=== PATIENT | male | born 1995 | race African-American/Black ===

== ENCOUNTER 2018-01-21 23:17 | Emergency (ER) | payer MEDICAID ==
[2018-01-21] MEDS ORDERED: ONDANSETRON 4 MG TAB.RAPDIS PO ONE (23:43)
[2018-01-21] MEDS ORDERED: FAMOTIDINE 20 MG TABLET PO ONE (23:43)
--- NOTE | 2018-01-21 23:45 | ER Document Report ---
HPI - HPI Patient complains to provider of: nausea, vomiting, diarrhea Pain Level: 2 Context: Patient is a 22-year-old male comes emergency department for chief complaint of nausea, vomiting, diarrhea. He has vomited 4 times a day, he had a couple of loose bowel movements, nonbloody. He denies fever or chills. He reports generalized abdominal discomfort, denies current pain in the abdomen. His partner was sick yesterday with same symptoms. He denies any surgeries, daily medications, alcohol. Past Medical History - General Information source: Patient - Social History Smoking Status: Never Smoker Chew tobacco use (# tins/day): No Drug Abuse: None Lives with: Spouse/Significant other Family History: Reviewed & Not Pertinent Patient has suicidal ideation: No Patient has homicidal ideation: No - Medical History Medical History: Negative Renal/ Medical History: Denies: Hx Peritoneal Dialysis Surgical Hx: Negative - Immunizations Immunizations up to date: Yes Hx Diphtheria, Pertussis, Tetanus Vaccination: Yes Vertical Provider Document - CONSTITUTIONAL General Appearance: WD/WN, No Apparent Distress - INFECTION CONTROL TRAVEL OUTSIDE OF THE [place] IN LAST 30 DAYS: No - HEENT HEENT: Atraumatic, Normocephalic - NECK Neck: Normal Inspection - RESPIRATORY Respiratory: Breath Sounds Normal, No Respiratory Distress O2 Sat by Pulse Oximetry: 98 - CARDIOVASCULAR Cardiovascular: Regular Rate, Regular Rhythm - GI/ABDOMEN Gastrointestinal: Abdomen Soft, Abdomen Non-Tender - BACK Back: Normal Inspection. negative: CVA Tenderness-Right, CVA Tenderness-Left - NEURO Level of Consciousness: Awake, Alert, Appropriate - DERM Integumentary: Warm, Dry, No Rash Course - Re-evaluation Re-evalutation: Patient alert, well-appearing, soft abdomen, clear lungs, unremarkable vital signs with no tachycardia. After medications patient states he feels great, he was drinking, had no difficulty, no additional vomiting, no rebound symptoms. Glucose is slightly elevated at 204. I discussed with patient. We discussed laboratory workup to evaluate. Patient states she is ready to go home. Patient has sick contacts, suspect he does have a virus as the cause, low suspicion DKA based on this, however patient does agree to have very close follow-up with [facility] to have a fasting glucose performed to further evaluate his elevated blood glucose level today. Discussed return precautions in detail, patient states satisfaction and agreement. - Vital Signs Vital signs: Temp Pulse Resp BP Pulse Ox 98.6 F 96 16 136/62 H 98 01/21/18 23:22 01/21/18 23:22 01/21/18 23:22 01/21/18 23:22 01/21/18 23:22 Discharge - Discharge Clinical Impression: Vomiting and diarrhea Disposition: HOME, SELF-CARE Additional Instructions: Your examination and symptoms are consistent with a viral syndrome. This should resolve with time. Take prescribed nausea medication, start with clear fluids, progress to bland food, progress to normal diet. Your blood sugar is moderately elevated today, this needs to be rechecked by primary care to evaluate you for diabetes and additional management. Please follow-up with the referral placed, call and set up your follow-up. Return if you worsen including uncontrolled vomiting, fever, severe abdominal pain, or any other concerning or worsening symptoms. Prescriptions: Promethazine HCl [Phenergan 25 mg Tablet] 1 - 2 tab PO Q6H PRN #20 tablet PRN Reason: Forms: Return to Work Referrals: FREDERICK DRAKE MD [ACTIVE STAFF] - Follow up as needed DINA RIVAS MD [ACTIVE STAFF] - Follow up as needed
[2018-01-22 01:36] VITALS: BP 129/77
== END 2018-01-22 01:17 | disposition home or self-care (01) ==
LOC: ER 23:17
DX: R11.2 Nausea with vomiting, unspecified (principal); R19.7 Diarrhea, unspecified; R10.84 Generalized abdominal pain; R73.9 Hyperglycemia, unspecified
CPT/HCPCS: 99283; 82962; J3490; S0119

== ENCOUNTER 2018-03-04 21:21 | Emergency (ER) | payer MEDICAID ==
--- NOTE | 2018-03-04 22:36 | ER Document Report ---
ED General - General Chief Complaint: Chest Pain Stated Complaint: CHEST PAIN Time Seen by Provider: 03/04/18 22:34 Notes: Patient is a 22-year-old male who presents with complaint of left arm pain and chest pain. He says the left arm pain was mainly around his left elbow. It then I would radiate up into his shoulder and a little bit into his chest. Says it was worse earlier today. Started around 2 PM. He said is now almost resolved. He says the pain was gone felt as if pain was a bit worse with movement. No difficulty breathing. No history of any heart disease. No family history of heart disease in young age. He takes no medications and is otherwise healthy. 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 TRAVEL OUTSIDE OF THE [place] IN LAST 30 DAYS: No - Related Data Allergies/Adverse Reactions: No Known Allergies Allergy (Unverified 03/04/18 21:24) Past Medical History - Social History Smoking Status: Never Smoker Frequency of alcohol use: Rare Drug Abuse: None Family History: Reviewed & Not Pertinent Renal/ Medical History: Denies: Hx Peritoneal Dialysis - Immunizations Immunizations up to date: Yes Hx Diphtheria, Pertussis, Tetanus Vaccination: Yes Review of Systems - Review of Systems Notes: My Normal Review Basic REVIEW OF SYSTEMS: CONSTITUTIONAL : Denies fever, chills, or sweats. Denies recent illness. EENT: Denies eye, ear, throat, or mouth pain or symptoms. Denies nasal or sinus congestion. CARDIOVASCULAR: Had some chest pain. RESPIRATORY: Denies cough, cold, or chest congestion. Denies shortness of breath, difficulty breathing, or wheezing. GASTROINTESTINAL: Denies abdominal pain. Denies nausea, vomiting, or diarrhea. MUSCULOSKELETAL: Pain in left elbow. SKIN: Denies rash or skin lesions. NEUROLOGICAL: Denies altered mental status or loss of consciousness. Denies headache. Denies weakness or paralysis or loss of use of either side. Denies problems with gait or speech. Denies sensory or motor loss. ALL OTHER SYSTEMS REVIEWED AND NEGATIVE. Physical Exam - Vital signs Vitals: Temp Pulse Resp BP Pulse Ox 97.9 F 68 18 141/83 H 100 03/04/18 22:21 03/04/18 22:21 03/04/18 22:21 03/04/18 22:21 03/04/18 22:21 - Notes Notes: General Appearance: Well nourished, alert, cooperative, no acute distress, no obvious discomfort. Well appearing. Vitals: reviewed, See vital signs table. Head: no swelling or tenderness to the head Eyes: PERRL, EOMI, Conjuctiva clear Neck: Supple, no neck tenderness, Chest wall: No tenderness palpation over anterior chest wall. Lungs: No wheezing, No rales, No rhonci, No accessory muscle use, good air exchange bilaterally. Heart: Normal rate, Regular rythm, No murmur, no rub Abdomen: Normal BS, soft, No rigidity, No abdominal tenderness, No guarding, no rebound, no abdominal masses, no organomegaly Extremities: strength 5/5 in all extremities, good pulses in all extremities, mild pain to palpation over left elbow lateral epicondyle. No significant pain with motion at this time. Remainder of left upper extremity is nontender. Skin: warm, dry, appropriate color, no rash Neuro: speech clear, oriented x 3, normal affect, responds appropriately to questions. Course - Re-evaluation Re-evalutation: 03/05/18 04:27 Patient looks very well on exam. He has pain is mostly the elbow is worse with motion he had some pain rating to his chest. Currently is pain-free and he looks very well. His lung mg are clear. His EKG is normal appearing. His heart is normal size on x-ray. He has no his factors for coronary disease or cardiomyopathy. He has no family history of coronary disease cardio myopathy at a young age. Feel he is safe to be discharged home. I encouraged her return to ER immediately if he has difficulty breathing, worsening chest pain, or feels unwell. Patient agrees with plan and will be discharged home. Dictation of this chart was performed using voice recognition software; therefore, there may be some unintended grammatical errors. - Vital Signs Vital signs: Temp Pulse Resp BP Pulse Ox 97.7 F 71 16 114/73 99 03/05/18 00:30 03/05/18 00:30 03/05/18 00:30 03/05/18 00:30 03/05/18 00:30 - EKG Interpretation by Me Additional EKG results interpreted by me: 03/04/18 22:35 EKG is reviewed and interpreted by me. EKG shows sinus rhythm with a rate of [address] segment elevation in multiple leads without significant ST segment depression which is consistent with early repolarization abnormality. CO interval, QRS duration, QTc intervals are within normal range. No old EKG available for comparison. Discharge - Discharge Clinical Impression: Arm pain Qualifiers: Laterality: left Qualified Code(s): M79.602 - Pain in left arm Chest pain Qualifiers: Chest pain type: unspecified Qualified Code(s): R07.9 - Chest pain, unspecified Condition: Good Disposition: HOME, SELF-CARE Additional Instructions: Please take Motrin and Tylenol for recurrent pains. Please return to the ER if you have worsening recurrent chest pain, any difficulty breathing, fevers, or if you feel unwell. Please follow up with a doctor in 5-7 days for close reevaluation. Forms: Return to Work
[2018-03-05 00:30] VITALS: BP 114/73
--- NOTE | 2018-03-05 04:30 | RADIOLOGY REPORT (SQ) ---
EXAM DESCRIPTION: CHEST SINGLE VIEW CLINICAL HISTORY: 22 years Male, chest pain COMPARISON: None. NUMBER OF VIEWS/TECHNIQUE: 1/AP FINDINGS: Adequate lung volume, clear parenchyma, normal cardiac silhouette, and intact bony thorax. IMPRESSION: No acute cardiopulmonary findings.
--- NOTE | 2018-03-05 07:50 | EKG REPORT ---
SEVERITY:- NORMAL ECG - SINUS RHYTHM ST ELEV, PROBABLE NORMAL EARLY REPOL PATTERN : Confirmed by: Geovani Lam MD 05-Mar-2018 07:50:00
== END 2018-03-05 00:30 | disposition home or self-care (01) ==
LOC: ER 21:21
DX: M79.602 Pain in left arm (principal); M25.522 Pain in left elbow; R07.9 Chest pain, unspecified
CPT/HCPCS: 36415; 71045; 84484; 93005; 93010; 99285

== ENCOUNTER 2018-03-09 23:04 | Inpatient (IN) | payer MEDICAID ==
--- NOTE | 2018-03-10 00:05 | ER Document Report ---
ED General - General Chief Complaint: Palpitations Stated Complaint: HEART PALPITATIONS Time Seen by Provider: 03/10/18 00:04 Notes: Patient is a 22-year-old male presents with complaint of feeling as if his heart is beating funny. He says when his heart gets fast he feels dizzy. He does not pass out. Has not had a syncopal episode. I saw him 5 days ago when he was having little bit of pain in his upper chest into his left arm. He says his pain resolved that day and has not had any chest pain since then. No difficulty breathing. No history of DVT or PE. No leg pain or leg swelling. No recent surgeries long road trips. He denies any steroid use. He denies any drug use. He denies being a smoker. He denies any family history of atrial fibrillation that he is aware of. He has no other complaints at this time. TRAVEL OUTSIDE OF THE [place] IN LAST 30 DAYS: No - Related Data Allergies/Adverse Reactions: No Known Allergies Allergy (Unverified 03/04/18 21:24) Past Medical History - Social History Smoking Status: Never Smoker Frequency of alcohol use: None Drug Abuse: None Family History: Reviewed & Not Pertinent Renal/ Medical History: Denies: Hx Peritoneal Dialysis - Immunizations Immunizations up to date: Yes Hx Diphtheria, Pertussis, Tetanus Vaccination: Yes Review of Systems - Review of Systems Notes: My Normal Review Basic REVIEW OF SYSTEMS: CONSTITUTIONAL : Denies fever, chills, or sweats. Denies recent illness. EENT: Denies eye, ear, throat, or mouth pain or symptoms. Denies nasal or sinus congestion. CARDIOVASCULAR: Repetitions irregular heartbeat. RESPIRATORY: Denies cough, cold, or chest congestion. Denies shortness of breath, difficulty breathing, or wheezing. GASTROINTESTINAL: Denies abdominal pain. Denies nausea, vomiting, or diarrhea. MUSCULOSKELETAL: Denies neck or back pain or joint pain or swelling. SKIN: Denies rash or skin lesions. NEUROLOGICAL: Denies altered mental status or loss of consciousness. Denies headache. Denies weakness or paralysis or loss of use of either side. Denies problems with gait or speech. Denies sensory or motor loss. ALL OTHER SYSTEMS REVIEWED AND NEGATIVE. Physical Exam - Vital signs Vitals: Temp Pulse Resp BP Pulse Ox 98.5 F 57 L 18 136/81 H 100 03/09/18 23:32 03/09/18 23:32 03/09/18 23:32 03/09/18 23:32 03/09/18 23:32 - Notes Notes: General Appearance: Well nourished, alert, cooperative, no acute distress, no obvious discomfort. Vitals: reviewed, See vital signs table. Head: no swelling or tenderness to the head Eyes: PERRL, EOMI, Conjuctiva clear Mouth: No decreasd moisture Throat: No tonsillar inflammation, No airway obstruction, No lymphadenopathy Neck: Supple, no neck tenderness, No thyromegaly Lungs: No wheezing, No rales, No rhonci, No accessory muscle use, good air exchange bilaterally. Heart: Normal rate, Regular rythm, No murmur, no rub, no murmur with valsalva Abdomen: Normal BS, soft, No rigidity, No abdominal tenderness, No guarding, no rebound, no abdominal masses, no organomegaly Extremities: strength 5/5 in all extremities, good pulses in all extremities, no swelling or tenderness in the extremities, no edema. Skin: warm, dry, appropriate color, no rash Neuro: speech clear, oriented x 3, normal affect, responds appropriately to questions. Course - Re-evaluation Re-evalutation: 03/10/18 01:46 Patient's heart rate is now well controlled on the Cardizem drip. He looks and feels improved. His cardiac enzymes are negative. TSH still pending. D-dimer is negative. I am waiting to hear back from the hospitalist to discuss the case with them for consideration for admission. 03/10/18 02:[address] Lopez who requests that I call Dr. Justin, bolter helper, and discussed the case with him. The small equipment operator called Dr. Justin and left a message on his answering machine. If we do not hear back to 30 minutes we will try to call him again. - Vital Signs Vital signs: Temp Pulse Resp BP Pulse Ox 98.5 F 57 L 18 96/70 L 100 03/09/18 23:32 03/09/18 23:32 03/10/18 02:01 03/10/18 02:01 03/10/18 02:01 - Laboratory Result Diagrams: 03/10/18 00:20 03/10/18 00:40 Laboratory results interpreted by me: 03/10/18 03/10/18 03/10/18 00:40 00:40 00:40 Creatine Kinase 2291 H CK-MB (CK-2) 14.10 H TSH 9.58 H - EKG Interpretation by Me Additional EKG results interpreted by me: 03/10/18 00:05 EKG is reviewed and interpreted by me. EKG shows atrial fibrillation with rate of [address] segment elevation or depression. Ischemic T-wave inversions. QRS duration and QTc intervals are within normal range. Old EKG for comparison is from March 04, 2018. Discharge - Discharge Clinical Impression: Atrial fibrillation Qualifiers: Atrial fibrillation type: persistent Qualified Code(s): I48.1 - Persistent atrial fibrillation Condition: Stable Disposition: ADMITTED INPATIENT Admitting Provider: Hospitalist Unit Admitted: [facility]
[2018-03-10] MEDS ORDERED: DILTIAZEM HCL INJ 25 MG/5 ML VIAL IV ONE (00:13)
[2018-03-10] MEDS ORDERED: DILTIAZEM HCL/D5W 125 MG/125 ML RTUINJ IV PRN ×2 (00:13→03:46)
[2018-03-10 00:32] LABS: ABSOLUTE BASOPHILS # (AUTO) 0.1 10^3/uL (0.0-0.2); ABSOLUTE EOSINOPHILS # (AUTO) 0.3 10^3/uL (0.0-0.6); ABSOLUTE LYMPHOCYTES (AUTO) 3.2 10^3/uL (0.5-4.7); ABSOLUTE MONOCYTES (AUTO) 0.7 10^3/uL (0.1-1.4); ABSOLUTE NEUT (AUTO) 3.3 10^3/uL (1.7-8.2); BASOPHILS % (AUTO) 0.9 % (0-2); EOSINOPHILS % (AUTO) 3.4 % (0-6); HEMATOCRIT 45.6 % (37.9-51.0); HEMOGLOBIN 15.2 g/dL (13.5-17.0); LYMPHOCYTES % (AUTO) 42.8 % (13-45); MEAN CORPUSCULAR HEMOGLOBIN 27.5 pg (27.0-33.4); MEAN CORPUSCULAR HGB CONC 33.4 g/dL (32.0-36.0); MEAN CORPUSCULAR VOLUME 82 fl (80-97); MONOCYTES % (AUTO) 9.3 % (3-13); PLATELET COUNT 378 10^3/uL (150-450); RED BLOOD COUNT 5.53 10^6/uL (4.35-5.55); RED CELL DISTRIBUTION WIDTH 12.9 % (11.5-14.0); SEGMENTED NEUTROPHILS % (AUTO) 43.6 % (42-78); TOTAL CELLS COUNTED % (AUTO) 100 %; WHITE BLOOD COUNT 7.5 10^3/uL (4.0-10.5)
[2018-03-10] MEDS ORDERED: DILTIAZEM HCL/D5W 125 MG/125 ML RTUINJ IV ONE (00:41)
--- NOTE | 2018-03-10 01:10 | RADIOLOGY REPORT (SQ) ---
EXAM DESCRIPTION: CHEST SINGLE VIEW CLINICAL HISTORY: chest pain COMPARISON: 03/04/2018 FINDINGS: Single frontal view of the chest. The cardiomediastinal silhouette has normal size and contour. No consolidation, pneumothorax, or pleural effusion. Leads overlie the chest. No displaced rib fractures identified. Upper abdominal soft tissues are unremarkable. IMPRESSION: 1. No acute pulmonary process identified.
[2018-03-10 01:18] LABS: ALANINE AMINOTRANSFERASE 69 U/L (21-72); ALBUMIN 4.6 g/dL (3.5-5.0); ALKALINE PHOSPHATASE 66 U/L (38-126); ANION GAP 9 (5-19); ASPARTATE AMINO TRANSFERASE 54 U/L (17-59); BILIRUBIN,DIRECT 0.2 mg/dL (0.0-0.4); BILIRUBIN,TOTAL 0.3 mg/dL (0.2-1.3); BLOOD UREA NITROGEN 15 mg/dL (7-20); CALCIUM 9.9 mg/dL (8.4-10.2); CARBON DIOXIDE 29 mmol/L (22-30); CHLORIDE 104 mmol/L (98-107); GLUCOSE 102 mg/dL (75-110); POTASSIUM 4.4 mmol/L (3.6-5.0); SODIUM 141.7 mmol/L (137-145); TOTAL PROTEIN 7.6 g/dL (6.3-8.2)
[2018-03-10 01:26] LABS: CREATINE KINASE 2291 U/L (55-170)
[2018-03-10 01:29] LABS: TROPONIN I < 0.012 ng/mL
[2018-03-10] MEDS ORDERED: NORMAL SALINE 1000 ML 1,000 ML IV ONE (01:40)
[2018-03-10 03:38] LABS: URINE AMPHETAMINES SCREEN NEGATIVE; URINE BARBITURATES SCREEN NEGATIVE; URINE BENZODIAZEPINES SCREEN NEGATIVE; URINE COCAINE SCREEN NEGATIVE; URINE MARIJUANA (THC) SCREEN NEGATIVE; URINE METHADONE SCREEN NEGATIVE; URINE PHENCYCLIDINE SCREEN NEGATIVE
[2018-03-10] MEDS ORDERED: ACETAMINOPHEN 325 MG TABLET PO PRN (03:42)
[2018-03-10] MEDS ORDERED: ENOXAPARIN SODIUM INJ 100 MG/1 ML DISP.SYRIN SUBCUT ONE (04:15)
[2018-03-10 04:57] LABS: FREE T3 7.55 pg/mL (2.77-5.27); FREE T4 (FREE THYROXINE) 0.88 ng/dL (0.78-2.19)
--- NOTE | 2018-03-10 06:22 | PDOC H&P ---
History of Present Illness Admission Date/PCP: 03/10/18 03:15 Patient complains of: Palpitations and dizziness History of Present Illness: JEFRY JAVED JR is a 22 year old male with history of chest pain one week ago prompting him to seek evaluation. Patient had a unremarkable workup but had a return of symptoms including palpitations and dizziness. He is found to be in A. fib with RVR and started on IV Cardizem. He denies recent viral illness, family history of A. fib or sudden , shortness of breath, passing out, syncope or previous episode, no recreational drugs, alcohol, excessive caffeine or energy drinks. Patient remains in A. fib with rate control, asymptomatic and referred to the hospitalist for admission. EKG does not suggest ST downsloping. Past Medical History Medical History: None Psychiatric Medical History: Denies: Depression Past Surgical History Past Surgical History: Reports: None Social History Information Source: Patient Lives with: Spouse/Significant other Smoking Status: Never Smoker Frequency of Alcohol Use: Rare Hx Recreational Drug Use: No Drugs: None Hx Prescription Drug Abuse: No - Advance Directive Resuscitation Status: Full Code Family History Family History: None Parental Family History Reviewed: Yes Children Family History Reviewed: Yes Sibling(s) Family History Reviewed.: Yes Medication/Allergy Home Medications: No Home Medications 03/10/18 Allergies/Adverse Reactions: No Known Allergies Allergy (Unverified 03/04/18 21:24) Review of Systems Constitutional: ABSENT: chills, fever(s), headache(s), weight gain, weight loss Eyes: ABSENT: visual disturbances Ears: ABSENT: hearing changes Cardiovascular: ABSENT: chest pain, dyspnea on exertion, edema, orthropnea, palpitations Respiratory: ABSENT: cough, hemoptysis Gastrointestinal: ABSENT: abdominal pain, constipation, diarrhea, hematemesis, hematochezia, nausea, vomiting Genitourinary: ABSENT: dysuria, hematuria Musculoskeletal: ABSENT: joint swelling Integumentary: ABSENT: rash, wounds Neurological: ABSENT: abnormal gait, abnormal speech, confusion, dizziness, focal weakness, syncope Psychiatric: ABSENT: anxiety, depression, homidical ideation, suicidal ideation Endocrine: ABSENT: cold intolerance, heat intolerance, polydipsia, polyuria Hematologic/Lymphatic: ABSENT: easy bleeding, easy bruising Physical Exam Vital Signs: Temp Pulse Resp BP Pulse Ox 98.0 F 70 15 125/75 100 03/10/18 04:26 03/10/18 04:30 03/10/18 04:01 03/10/18 04:26 03/10/18 04:26 General appearance: PRESENT: no acute distress, well-developed, well-nourished Head exam: PRESENT: atraumatic, normocephalic Eye exam: PRESENT: conjunctiva pink, EOMI, PERRLA. ABSENT: scleral icterus Ear exam: PRESENT: normal external ear exam Mouth exam: PRESENT: moist, tongue midline Neck exam: ABSENT: carotid bruit, JVD, lymphadenopathy, thyromegaly Respiratory exam: PRESENT: clear to auscultation chad. ABSENT: rales, rhonchi, wheezes Cardiovascular exam: PRESENT: irregular rhythm, tachycardia. ABSENT: diastolic murmur, rubs, systolic murmur Pulses: PRESENT: normal dorsalis pedis pul Vascular exam: PRESENT: normal capillary refill GI/Abdominal exam: PRESENT: normal bowel sounds, soft. ABSENT: distended, guarding, mass, organolmegaly, rebound, tenderness Rectal exam: PRESENT: deferred Extremities exam: PRESENT: full ROM. ABSENT: calf tenderness, clubbing, pedal edema Neurological exam: PRESENT: alert, awake, oriented to person, oriented to place , oriented to time, oriented to situation, CN II-XII grossly intact. ABSENT: motor sensory deficit Psychiatric exam: PRESENT: appropriate affect, normal mood. ABSENT: homicidal ideation, suicidal ideation Skin exam: PRESENT: dry, intact, warm. ABSENT: cyanosis, rash Results Impressions: Chest X-Ray 03/10/18 00:06 IMPRESSION: 1. No acute pulmonary process identified. Assessment & Plan - Diagnosis (1) Atrial fibrillation Qualifiers: Atrial fibrillation type: persistent Qualified Code(s): I48.1 - Persistent atrial fibrillation Is this a current diagnosis for this admission?: Yes Plan: IMCU with continued IV Cardizem, Lovenox, IV fluid bolus as needed hypotension, no EKG or history evidence for hypertrophic cardiomyopathy. However also no history or evidence for athlete's heart as the patient has never participated in sports. 2D echo and cardiology consult ordered. (2) Chest pain Qualifiers: Chest pain type: unspecified Qualified Code(s): R07.9 - Chest pain, unspecified Is this a current diagnosis for this admission?: Yes Plan: Follow-up serial cardiac enzymes and TSH - Time Time Spent: 30 to 50 Minutes - Inpatient Certification Medical Necessity: Need Close Monitoring Due to Risk of Patient Decompensation
[2018-03-10] MEDS: NORMAL SALINE 1000 ML 1,000 ML IV PRN ×2 (06:40→11:41)
[2018-03-10] MEDS: DOCUSATE SODIUM 100 MG CAPSULE PO SCH ×2 (09:26→17:01)
[2018-03-10] MEDS: DILTIAZEM HCL 30 MG TABLET PO SCH ×2 (11:20→17:01)
--- NOTE | 2018-03-10 13:07 | PDOC PROGRESS REPORT ---
Subjective Progress Note for:: 03/10/18 Subjective:: Patient relates that his heart is beating normal. Accordingly he was sitting on his couch when all of a sudden his heart started beating fast and he was weak a little over. He denies having any similar episode or passing out. Patient denies chest pain Review of system All organ systems evaluated and negative except as in subjective All laboratories and significant diagnostics have been reviewed Reason For Visit: AFIB LVH Physical Exam Vital Signs: Temp Pulse Resp BP Pulse Ox 98.0 F 65 15 112/59 L 100 03/10/18 04:26 03/10/18 06:00 03/10/18 04:01 03/10/18 06:00 03/10/18 04:26 Intake & Output 03/09/18 03/10/18 03/11/18 06:59 06:59 06:59 Intake Total 26 Output Total 0 Balance 26 Weight 99.8 kg General appearance: PRESENT: no acute distress, cooperative, well-developed, well-nourished Head exam: PRESENT: atraumatic, normocephalic Eye exam: PRESENT: conjunctiva pink, EOMI, PERRLA Ear exam: PRESENT: normal external ear exam Mouth exam: PRESENT: moist Neck exam: PRESENT: full ROM. ABSENT: JVD, lymphadenopathy, tenderness Respiratory exam: PRESENT: clear to auscultation chad Cardiovascular exam: PRESENT: RRR. ABSENT: diastolic murmur, systolic murmur Vascular exam: PRESENT: normal capillary refill GI/Abdominal exam: PRESENT: normal bowel sounds, soft. ABSENT: tenderness Extremities exam: ABSENT: full ROM, pedal edema Musculoskeletal exam: PRESENT: ambulatory Neurological exam: PRESENT: alert, awake, oriented to person, oriented to place , oriented to time, oriented to situation, CN II-XII grossly intact Psychiatric exam: PRESENT: appropriate affect, normal mood Skin exam: PRESENT: intact, normal color Results Impressions: Chest X-Ray 03/10/18 00:06 IMPRESSION: 1. No acute pulmonary process identified. Assessment & Plan - Diagnosis (1) Atrial fibrillation Qualifiers: Atrial fibrillation type: persistent Qualified Code(s): I48.1 - Persistent atrial fibrillation Is this a current diagnosis for this admission?: Yes Plan: My understanding is that the Cardizem drip was stopped emergency room however shortly after patient returned back to atrial fibrillation. At that point time Cardizem drip had to be restarted. Patient at the present time is normal sinus rhythm. Nurse had been advised to start oral Cardizem and within an hour stop the Cardizem drip. To order echocardiogram. Consult for cardiology had been placed on admission (2) Chest pain Qualifiers: Chest pain type: unspecified Qualified Code(s): R07.9 - Chest pain, unspecified Is this a current diagnosis for this admission?: Yes Plan: Resolved (3) Abnormal thyroid function test Is this a current diagnosis for this admission?: Yes Plan: Will repeat T3 Since elevated and TSH is with a normal T4 - Time Time Spent with patient: 15-24 minutes Medications reviewed and adjusted accordingly: Yes Anticipated discharge: Home Within: within 24 hours - Inpatient Certification Based on my medical assessment, after consideration of the patient's comorbidities, presenting symptoms, or acuity I expect that the services needed warrant INPATIENT care.: Yes I certify that my determination is in accordance with my understanding of Medicare's requirements for reasonable and necessary INPATIENT services [42 CFR 412.3e].: Yes Medical Necessity: Need Close Monitoring Due to Risk of Patient Decompensation, Need For Continuous Telemetry Monitoring
--- NOTE | 2018-03-10 14:25 | EKG REPORT ---
SEVERITY:- ABNORMAL ECG - ATRIAL FIBRILLATION PAIRED VENTRICULAR PREMATURE COMPLEXES LVH BY VOLTAGE : Confirmed by: Val Justin 10-Mar-2018 14:24:54
[2018-03-10] MEDS: ENOXAPARIN SODIUM INJ 100 MG/1 ML DISP.SYRIN SUBCUT SCH (17:00)
--- NOTE | 2018-03-10 18:41 | XCELERA REPORT ---
[address] [address] Transthoracic Echocardiogram Report Name: JEFRY JAVED JR Age: 22 yrs Gender: Male : 1995 Patient Status: Inpatient Patient Location: [address] [place] [address] Study Date: 03/10/2018 03:06 PM Height: 69 in Weight: 220 lb BSA: 2.2 m2 Procedure: A complete two-dimensional transthoracic echocardiogram was performed (2D, M-mode, spectral and color flow Doppler). The study was technically adequate with some images being suboptimal in quality. Reason For Study: atrial fibrillation Ordering Physician: MAYITO RAMIRES Performed By: Pema Avery Interpretation Summary The left ventricular ejection fraction is normal. There is mild concentric left ventricular hypertrophy. The left ventricle is grossly normal size. Doppler measurements suggest normal left ventricular diastolic function Wall motion cannot be accurately commented on, but no definite regional wall motion abnormalities noted. The right ventricular systolic function is normal. The right atrium is normal. The left atrial size is normal. There is no mitral valve stenosis. There is a trace amount of mitral regurgitation There is no aortic valve stenosis No aortic regurgitation is present. There is a trace or physiologic amount of tricuspid regurgitation Tricuspid regurgitation jet envelope not well defined to measure RV systolic pressure accurately. The aortic root is not well visualized but is probably normal size. The inferior vena cava appeared normal and decreased > 50% with respiration (RAP 5-10 mmHg) There is no pericardial effusion. MMode/2D Measurements & Calculations RVDd: 3.0 cm LVIDd: 4.9 cm FS: 33.8 % Ao root diam: 2.5 cm IVSd: 1.4 cm LVIDs: 3.2 cm EDV(Teich): 112.2 ml LVPWd: 0.96 cm ESV(Teich): 42.1 ml Ao root area: 4.7 cm2 EF(Teich): 62.5 % Doppler Measurements & Calculations MV E max bony: MV dec slope: Ao V2 max: LV V1 max P.5 cm/sec 173.6 cm/sec 4.4 mmHg MV A max bony: 577.4 cm/sec2 Ao max PG: LV V1 max: 58.9 cm/sec MV dec time: 12.1 mmHg 105.5 cm/sec MV E/A: 1.9 0.19 sec PA V2 max: PI end-d bony: TR max bony: 96.5 cm/sec 83.5 cm/sec 253.0 cm/sec PA max P.7 mmHg TR max P.6 mmHg Left Ventricle The left ventricle is grossly normal size. There is mild concentric left ventricular hypertrophy. The left ventricular ejection fraction is normal. Doppler measurements suggest normal left ventricular diastolic function. Wall motion cannot be accurately commented on, but no definite regional wall motion abnormalities noted. Right Ventricle The right ventricle is grossly normal size. There is normal right ventricular wall thickness. The right ventricular systolic function is normal. Atria The right atrium is normal. The left atrial size is normal. Interarterial septum not well visualized and not well dopplered. Cannot comment on ASD/PFO presence. Mitral Valve The mitral valve is grossly normal. There is no mitral valve stenosis. There is a trace amount of mitral regurgitation. Aortic Valve The aortic valve is grossly normal. There is no aortic valve stenosis. No aortic regurgitation is present. Tricuspid Valve The tricuspid valve is not well visualized, but is grossly normal. There is no tricuspid stenosis. There is a trace or physiologic amount of tricuspid regurgitation. Tricuspid regurgitation jet envelope not well defined to measure RV systolic pressure accurately. Pulmonic Valve The pulmonic valve is not well visualized. Great Vessels The aortic root is not well visualized but is probably normal size. The inferior vena cava appeared normal and decreased > 50% with respiration (RAP 5-10 mmHg). Effusions There is no pericardial effusion. : MAYITO RAMIRES > Val Justin
--- NOTE | 2018-03-10 20:09 | PDOC CONSULTATION ---
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 Patient had a unremarkable workup but had a return of symptoms including palpitations and dizziness. He is found to be in A. fib with RVR and started on IV Cardizem. He denies recent viral illness, family history of A. fib or sudden , shortness of breath, passing out, syncope or previous episode, no recreational drugs, alcohol, excessive caffeine or energy drinks. Patient remains in A. fib with rate control, asymptomatic and referred to the hospitalist for admission. EKG does not suggest ST downsloping. This history obtained by the hospitalist was reviewed and confirmed. Patient denied any prior history of cardiac problems except what has already been mentioned above. Patient denied any family history of premature coronary artery disease or sudden cardiac . Patient denied any family history of atrial fibrillation. Patient does describe history of loud habitual snoring. He claims that he tends to wake up gasping for breath and also with racing of the heart. Patient denied any alcohol or illicit drug abuse. Patient did describe history of intermittent hypertension. Past Medical History Psychiatric Medical History: Denies: Depression Past Surgical History Past Surgical History: Reports: None Social History Information Source: Patient Lives with: Spouse/Significant other Smoking Status: Never Smoker Frequency of Alcohol Use: Rare Hx Recreational Drug Use: No Drugs: None Hx Prescription Drug Abuse: No - Advance Directive Resuscitation Status: Full Code Family History Family History: None, Hypertension Parental Family History Reviewed: Yes Children Family History Reviewed: Yes Sibling(s) Family History Reviewed.: Yes Medication/Allergy Home Medications: No Home Medications 03/10/18 Allergies/Adverse Reactions: No Known Allergies Allergy (Unverified 03/04/18 21:24) Review of Systems Review of Systems: Please see history of present illness and past medical history as wall. Constitutional: No fever or chills reported. Head : No recent chronic headaches, recent head injury. Eyes: No recent eye pain, diplopia, redness, discharge, acute visual changes. Ears: No recent chronic ear pain, acute hearing loss, ear discharge. Oral cavity: No recent ulcerations, bleeding, oral cavity discomfort. Neck: No recent acute neck pain reported. Hematologic: No recent easy bruising or bleeding. Lymphatic: No recent lymph node enlargement reported. Cardiovascular system review: See history of present illness. Respiratory system review: No hemoptysis or blood clots in the lungs reported. Mild Shortness of breath on exertion Gastrointestinal system review: Negative for any recent acute hematemesis, melena. Genitourinary system review: No recent acute or chronic hematuria, flank pain, UTI etc. reported. Skin system review: Negative for any recent abnormal bruising, no rash, no pruritus reported. Neurologic: No prior history of strokes, mini strokes, seizure disorder. Psychologic: No history of major psychosis or major depression reported. Musculoskeletal: Minor aches and pains reported. No acute joint swelling reported. Endocrine: No recent polyuria, polydipsia, recent heat or cold intolerance. Physical Exam Vital Signs: Temp Pulse Resp BP Pulse Ox 98.7 F 78 16 126/58 H 100 03/10/18 15:40 03/10/18 15:40 03/10/18 15:40 03/10/18 15:40 03/10/18 15:40 Intake & Output 03/09/18 03/10/18 03/11/18 06:59 06:59 06:59 Intake Total 26 2900 Output Total 0 605 Balance 26 2295 Weight 99.8 kg Exam: GENERAL: well-nourished and in no acute distress. Alert and oriented x3 HEAD: Atraumatic, normocephalic. EYES: Pupils equal round and reactive to light, extraocular movements intact, sclera anicteric, conjunctiva are normal. ENT: TMs normal, nares patent, oropharynx clear without exudates. Moist mucous membranes. No oral ulcerations or bleeding gums noted NECK: supple without lymphadenopathy. Trachea is central. No cervical or axillary lymphadenopathy noted. Carotids are 2+, JVD WNL LUNGS: Respiration seems nonlabored, no significant accessory muscle action noted. Breath sounds clear to auscultation bilaterally and equal noted. No wheezes rales or rhonchi noted. No significant dullness noted on percussion. CHEST: Palpation of the chest wall shows no significant chest wall tenderness. 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 ABDOMEN: Soft, no significant tenderness appreciated, normoactive bowel sounds. No guarding, no rebound. No rigidity noted . No masses appreciated. EXTREMITIES: Pedal pulses are 1-2+, no calf tenderness noted. No clubbing or cyanosis. negative pedal edema noted NEUROLOGICAL: Focused neurological exam showed no significant neurologic deficit. Normal speech, no focal weakness appreciated. PSYCH: Normal mood, normal affect. Judgment and insight within normal limits. SKIN: No significant ecchymosis, skin is noted to be warm. MUSCULOSKELETAL EXAM: No significant acute joint swelling noted. Results Laboratory Results: 03/10/18 13:59 Free T3 pg/mL 5.27 EKG Comments: Atrial fibrillation with rapid ventricular response Impressions: Chest X-Ray 03/10/18 00:06 IMPRESSION: 1. No acute pulmonary process identified. Assessment & Plan - Diagnosis (1) Atrial fibrillation Qualifiers: Atrial fibrillation type: persistent Qualified Code(s): I48.1 - Persistent atrial fibrillation Is this a current diagnosis for this admission?: Yes (2) Abnormal thyroid function test Is this a current diagnosis for this admission?: Yes (3) Abnormal cardiac enzyme level Is this a current diagnosis for this admission?: Yes (4) Sleep disorder breathing Is this a current diagnosis for this admission?: Yes - Notes Notes: Atrial fibrillation: Paroxysmal exact etiology not clear, could be related to underlying sleep apnea syndrome. Will start patient on small dose of beta- osvaldo. Do not feel patient needs chronic anticoagulation at this point. 2D echo obtained reviewed. It shows LVH but no other significant abnormalities. Abnormal thyroid function test: This is being evaluated by hospitalist. Abnormal cardiac enzyme level: Patient has predominantly muscle enzyme increase. Patient describes having to lift heavy weights and heavy packages and could be related to that. Will check another set tomorrow morning. Sleep disordered breathing: This is strongly suspected based on patient's symptoms and comorbid diagnosis. Patient will be as scheduled for a sleep study as an outpatient. - Time Time Spent: 30 to 50 Minutes - CODE STATUS was discussed, patient remains full code. Surrogate decision-maker patient's . Multiple medical problems were addressed. More than 50% of the time spent coordinating care, discussing management plans with involved caregivers. Management plans discussed with involved personnels. Medical decision making was of moderate to high complexity , patient's has multiple comorbidities. Medications reviewed and adjusted accordingly: Yes
--- NOTE | 2018-03-10 22:24 | EKG REPORT ---
SEVERITY:- BORDERLINE ECG - SINUS RHYTHM LVH BY VOLTAGE INFERIOR Q WAVES, PROBABLY NORMAL VARIATION : Confirmed by: Val Justin 10-Mar-2018 22:24:00
[2018-03-11] MEDS: DILTIAZEM HCL 30 MG TABLET PO SCH ×2 (00:40→06:10)
[2018-03-11 05:28] LABS: HEMOGLOBIN 13.5 g/dL (13.5-17.0); MEAN CORPUSCULAR HEMOGLOBIN 27.1 pg (27.0-33.4); MEAN CORPUSCULAR HGB CONC 32.9 g/dL (32.0-36.0); MEAN CORPUSCULAR VOLUME 82 fl (80-97); PLATELET COUNT 320 10^3/uL (150-450); RED BLOOD COUNT 4.97 10^6/uL (4.35-5.55); RED CELL DISTRIBUTION WIDTH 12.9 % (11.5-14.0)
[2018-03-11 05:46] LABS: ANION GAP 10 (5-19); BLOOD UREA NITROGEN 15 mg/dL (7-20); CALCIUM 9.5 mg/dL (8.4-10.2); CARBON DIOXIDE 25 mmol/L (22-30); CHLORIDE 108 mmol/L (98-107); CREATINE KINASE 941 U/L (55-170); GLUCOSE 97 mg/dL (75-110); POTASSIUM 4.6 mmol/L (3.6-5.0); SODIUM 142.9 mmol/L (137-145)
[2018-03-11] MEDS: ENOXAPARIN SODIUM INJ 100 MG/1 ML DISP.SYRIN SUBCUT SCH (06:10)
[2018-03-11] MEDS ORDERED: LEVOTHYROXINE SODIUM 0.075 MG TABLET PO ONE (08:00)
[2018-03-11] MEDS: DOCUSATE SODIUM 100 MG CAPSULE PO SCH (09:08)
--- NOTE | 2018-03-11 09:09 | EKG REPORT ---
SEVERITY:- ABNORMAL ECG - SINUS RHYTHM BORDERLINE Q WAVES IN INFERIOR LEADS INFERIOR Q WAVES, PROBABLY NORMAL VARIATION REPOL ABNRM, PROBABLE ISCHEMIA, INFERIOR LDS : Confirmed by: Val Justin 11-Mar-2018 09:08:38
[2018-03-11 10:37] VITALS: BP 120/62
--- NOTE | 2018-03-11 17:38 | PDOC DISCHARGE SUMMARY ---
General - Admit/Disc Date/PCP Admission Date/Primary Care Provider: 03/10/18 03:15 Discharge Date: 03/11/18 - Discharge Diagnosis (1) Atrial fibrillation Is this a current diagnosis for this admission?: Yes (2) Chest pain Is this a current diagnosis for this admission?: Yes (3) Hypothyroidism Is this a current diagnosis for this admission?: Yes (4) Mild concentric left ventricular hypertrophy (LVH) Is this a current diagnosis for this admission?: Yes - Additional Information Resuscitation Status: Full Code Discharge Diet: Regular Discharge Activity: Activity As Tolerated Prescriptions: Diltiazem HCl [Diltiazem 24Hr Cd] 120 mg PO DAILY #30 cap.er.24h Levothyroxine Sodium [Synthroid 0.075 mg Tablet] 0.075 mg PO Q6AM #30 tablet Home Medications: Diltiazem HCl [Diltiazem 24Hr Cd] 120 mg PO DAILY #30 cap.er.24h 03/11/18 Levothyroxine Sodium [Synthroid 0.075 mg Tablet] 0.075 mg PO Q6AM #30 tablet 12/28 History of Present Illness History of Present Illness: JEFRY JAVED JR is a 22 year old male with history of chest pain one week ago prompting him to seek evaluation. Patient had a unremarkable workup but had a return of symptoms including palpitations and dizziness. He was found to be in A. fib with RVR and started on IV Cardizem. He denied recent viral illness, family history of A. fib or sudden , shortness of breath, passing out, syncope or previous episode, no recreational drugs, alcohol, excessive caffeine or energy drinks. Patient remained in A. fib with rate control, asymptomatic and referred to the hospitalist for admission. Hospital Course Hospital Course: Patient rate improve while in ED and on Cardizem drip. It was stopped but have to be resumed because patient returned back to atrial fibrillation with a rapid ventricular response. Patient converted to normal sinus rhythm within the first 24 hours of admission. At that point in time he was started on Cardizem oral and remained on normal sinus rhythm. Troponin was trended and was negative. TSH was elevated and patient was started on levothyroxine supplementation. He has been made aware that he has to follow-up with his primary care provider since blood work will have to be repeated within 6 weeks to determine if he will require further adjustment on the dose. Patient also had been made aware to follow-up with Dr. Justin. Echocardiogram was obtained and did not show diastolic dysfunction but mild concentric left ventricular hypertrophy. Patient has remained stable while hospitalized and prompted to admit since achieving maximum benefit of hospitalization stay. Physical Exam Vital Signs: Temp Pulse Resp BP Pulse Ox 97.7 F 70 15 126/67 H 99 03/11/18 08:07 03/11/18 08:07 03/11/18 08:07 03/11/18 08:07 03/11/18 08:07 Intake & Output 03/10/18 03/11/18 03/12/18 06:59 06:59 06:59 Intake Total 26 3705 Output Total 0 605 Balance 26 3100 Weight 99.8 kg 100.2 kg General appearance: PRESENT: no acute distress, cooperative, obese Head exam: PRESENT: atraumatic, normocephalic Eye exam: PRESENT: conjunctiva pink, EOMI, PERRLA Ear exam: PRESENT: normal external ear exam Mouth exam: PRESENT: moist Neck exam: PRESENT: full ROM. ABSENT: JVD, lymphadenopathy, tenderness Respiratory exam: PRESENT: clear to auscultation chad Cardiovascular exam: PRESENT: RRR. ABSENT: diastolic murmur, systolic murmur Vascular exam: PRESENT: normal capillary refill GI/Abdominal exam: PRESENT: normal bowel sounds, soft. ABSENT: tenderness Extremities exam: PRESENT: full ROM. ABSENT: pedal edema Musculoskeletal exam: PRESENT: ambulatory Neurological exam: PRESENT: alert, awake, oriented to person, oriented to place , oriented to time, CN II-XII grossly intact Psychiatric exam: PRESENT: appropriate affect, normal mood Skin exam: PRESENT: intact, normal color Results Laboratory Results: 03/11/18 05:01 03/11/18 05:01 03/10/18 03/11/18 03/11/18 13:59 05:01 05:01 WBC 6.0 RBC 4.97 Hgb 13.5 Hct 41.0 MCV 82 MCH 27.1 MCHC 32.9 RDW 12.9 Plt Count 320 Sodium 142.9 Potassium 4.6 Chloride 108 H Carbon Dioxide 25 Anion Gap 10 BUN 15 Creatinine 0.89 Est GFR ( Amer) > 60 Est GFR (Non-Af Amer) > 60 Glucose 97 Calcium 9.5 Free T3 pg/mL 5.27 03/11/18 03/11/18 05:01 05:01 Creatine Kinase 941 H CK-MB (CK-2) 4.65 H Impressions: Chest X-Ray 03/10/18 00:06 IMPRESSION: 1. No acute pulmonary process identified. Qualifiers - * PATIENT BEING DISCHARGED WITH ANY OF THE FOLLOWING DIAGNOSIS: No Plan Discharge Plan: Discharge home. Patient allowed to return back to work on February 10, 2018 Time Spent: Less than 30 Minutes
--- NOTE | 2018-03-11 18:49 | PDOC PROGRESS REPORT ---
Subjective Progress Note for:: 03/11/18 Subjective:: Patient seems to be doing better without any recurrence of atrial fibrillation. Pt is denying any chest arm or neck discomfort. Patient denying any PND, orthopnea. Patient denied any sustained palpitations, dizziness, syncope, near syncope. Patient denying any fever chills. Patient denying any other significant discomfort. Patient's interviewed and confirms loud snoring and witnessed apnea. Patient is maintaining sinus rhythm. Review of systems: Rest review of systems negative. Medications: Medications have been reviewed. Reason For Visit: AFIB LVH Physical Exam Vital Signs: Temp Pulse Resp BP Pulse Ox 97.7 F 70 15 120/62 99 03/11/18 10:36 03/11/18 10:36 03/11/18 10:36 03/11/18 10:36 03/11/18 10:36 Intake & Output 03/10/18 03/11/18 03/12/18 06:59 06:59 06:59 Intake Total 26 3705 Output Total 0 605 Balance 26 3100 Weight 99.8 kg 100.2 kg Exam: GENERAL: well-nourished and in no acute distress. Alert and oriented x3 HEAD: Atraumatic, normocephalic. EYES: Pupils equal round and reactive to light, extraocular movements intact, sclera anicteric, conjunctiva are normal. ENT: TMs normal, nares patent, oropharynx clear without exudates. Moist mucous membranes. No oral ulcerations or bleeding gums noted NECK: supple without lymphadenopathy. Trachea is central. No cervical or axillary lymphadenopathy noted. Carotids are 2+, JVD WNL LUNGS: Respiration seems nonlabored, no significant accessory muscle action noted. Breath sounds clear to auscultation bilaterally and equal noted. No wheezes rales or rhonchi noted. No significant dullness noted on percussion. CHEST: Palpation of the chest wall shows no significant chest wall tenderness. 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 ABDOMEN: Soft, no significant tenderness appreciated, normoactive bowel sounds. No guarding, no rebound. No rigidity noted . No masses appreciated. EXTREMITIES: Pedal pulses are 1-2+, no calf tenderness noted. No clubbing or cyanosis. negative pedal edema noted NEUROLOGICAL: Focused neurological exam showed no significant neurologic deficit. Normal speech, no focal weakness appreciated. PSYCH: Normal mood, normal affect. Judgment and insight within normal limits. SKIN: No significant ecchymosis, skin is noted to be warm. MUSCULOSKELETAL EXAM: No significant acute joint swelling noted. Results Laboratory Results: 03/11/18 05:01 03/11/18 05:01 03/11/18 03/11/18 05:01 05:01 WBC 6.0 RBC 4.97 Hgb 13.5 Hct 41.0 MCV 82 MCH 27.1 MCHC 32.9 RDW 12.9 Plt Count 320 Sodium 142.9 Potassium 4.6 Chloride 108 H Carbon Dioxide 25 Anion Gap 10 BUN 15 Creatinine 0.89 Est GFR ( Amer) > 60 Est GFR (Non-Af Amer) > 60 Glucose 97 Calcium 9.5 03/11/18 03/11/18 05:01 05:01 Creatine Kinase 941 H CK-MB (CK-2) 4.65 H EKG Comments: Twelve-lead EKG reviewed showed sinus rhythm. No acute ST-T wave changes are noted. Labs were reviewed. Impressions: Chest X-Ray 03/10/18 00:06 IMPRESSION: 1. No acute pulmonary process identified. Assessment & Plan - Diagnosis (1) Atrial fibrillation Qualifiers: Atrial fibrillation type: persistent Qualified Code(s): I48.1 - Persistent atrial fibrillation Is this a current diagnosis for this admission?: Yes (2) Abnormal thyroid function test Is this a current diagnosis for this admission?: Yes (3) Abnormal cardiac enzyme level Is this a current diagnosis for this admission?: Yes (4) Sleep disorder breathing Is this a current diagnosis for this admission?: Yes - Notes Notes: Labs from today reviewed. The abnormal enzyme levels both thyroid function and also cardiac enzyme levels as trending down. Further follow-up can be done as an outpatient. Patient given my card. Atrial fibrillation: Paroxysmal exact etiology not clear, could be related to underlying sleep apnea syndrome. Will start patient on small dose of beta- osvaldo. Do not feel patient needs chronic anticoagulation at this point. 2D echo obtained reviewed. It shows LVH but no other significant abnormalities. Abnormal thyroid function test: This is being evaluated by hospitalist. Abnormal cardiac enzyme level: Patient has predominantly muscle enzyme increase. Patient describes having to lift heavy weights and heavy packages and could be related to that. Cardiac enzymes are coming down. Troponin I remains negative. Sleep disordered breathing: This is strongly suspected based on patient's symptoms and comorbid diagnosis. Patient will be as scheduled for a sleep study as an outpatient. - Time Time with patient: Greater than 35 minutes - Discussion made about proper treatment of obesity, hypertension, LVH and treatment of sleep apnea. Patient to be followed in the office. More than 50% of the time spent coordinating care , discussing management plans with involved caregivers. Management plans discussed with involved personnels. Medical decision making was of moderate to high complexity, patient's has multiple comorbidities. Medications reviewed and adjusted accordingly: Yes
[2018-03-12] MEDS ORDERED: LEVOTHYROXINE SODIUM 0.075 MG TABLET PO SCH (06:00)
== END 2018-03-11 11:11 | disposition home or self-care (01) | DRG 310 ==
LOC: ER 23:04 → EH 03-10 03:15 → 3W 03-10 04:21
PROVIDERS: ADMIT Internal Medicine; ATTEND Internal Medicine
DX: I48.1 Persistent atrial fibrillation (principal); R94.6 Abnormal results of thyroid function studies
CPT/HCPCS: 36415; 71045; 80048; 80053; 80307; 82550; 82553; 83735; 84439; 84443; 84481; 84484; 85025; 85027; 85379; 93005; 93010; 93306; 96365; 96366; 99285; J1650; J3490; J7030

== ENCOUNTER → 2018-04-30 | Outpatient (CLI) | payer MEDICAID ==
--- NOTE | 2018-04-30 15:26 | RADIOLOGY REPORT (SQ) ---
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 TECHNIQUE: Dynamic and static ornelas-scale images acquired of the thyroid gland. Selected additional c olor/power Doppler images recorded. All images stored to PACS. LIMITATIONS: None. FINDINGS: RIGHT LOBE: Normal size, 3.9 x 1.7 x 1.2 cm. Homogeneous echotexture. No cystic or solid masses. LEFT LOBE: Normal size, 4.2 x 1.7 x 1.5 cm. Homogeneous echotexture. Multiple tiny less than 5 mm c olloid cysts are present in the left lobe thyroid of doubtful clinical significance. ISTHMUS: Normal size. Homogeneous echotexture. No cystic or solid masses. OTHER: No other significant finding. IMPRESSION: Small benign-appearing left lobe thyroid colloid cysts of doubtful clinical significance . Otherwise unremarkable thyroid ultrasound. TECHNICAL DOCUMENTATION: JOB ID: [id number] [employer]- All Rights Reserved Reading location - IP/workstation name: [email or web address]
== END ==
LOC: RAD 13:28
PROVIDERS: ATTEND Physician Assistant Medical
DX: E04.1 Nontoxic single thyroid nodule (principal)
CPT/HCPCS: 76536

== ENCOUNTER 2019-03-21 21:24 | Emergency (ER) | payer SELFPAY ==
--- NOTE | 2019-03-21 22:01 | ER Document Report ---
ED General - General Chief Complaint: Irregular Pulse Stated Complaint: IRREGULAR HEART BEAT Time Seen by Provider: 03/21/19 22:00 Primary Care Provider: PRICILLA JAIN PA-C [Primary Care Provider] - Follow up as needed Notes: Patient is a 23-year-old male presents with complaint of feeling as if he is back in atrial fibrillation. March of last year was diagnosed with A. fib and placed on Cardizem 120 mg a day. Patient says that he no longer takes it. He says he just stopped taking the medicine and has not recently follow-up with a doctor. Denies any chest pain. No shortness of breath. He says he just feels that his heart is beating regular like he did in the past. He also supposed to be on levothyroxine but does not take that regularly either. He has no other complaints at this time. TRAVEL OUTSIDE OF THE [place] IN LAST 30 DAYS: No - Related Data Allergies/Adverse Reactions: No Known Allergies Allergy (Unverified 03/04/18 21:24) Past Medical History - Social History Smoking Status: Never Smoker Frequency of alcohol use: None Drug Abuse: None Family History: None, Hypertension Renal/ Medical History: Denies: Hx Peritoneal Dialysis Psychiatric Medical History: Denies: Hx Depression - Immunizations Immunizations up to date: Yes Hx Diphtheria, Pertussis, Tetanus Vaccination: Yes Review of Systems - Review of Systems Notes: My Normal Review Basic REVIEW OF SYSTEMS: CONSTITUTIONAL : Denies fever, chills, or sweats. Denies recent illness. EENT: Denies eye, ear, throat, or mouth pain or symptoms. Denies nasal or sinus congestion. CARDIOVASCULAR: Denies chest pain. Palpitations. RESPIRATORY: Denies cough, cold, or chest congestion. Denies shortness of breath, difficulty breathing, or wheezing. GASTROINTESTINAL: Denies abdominal pain. Denies nausea, vomiting, or diarrhea. Denies constipation. Last BM: MUSCULOSKELETAL: Denies neck or back pain or joint pain or swelling. SKIN: Denies rash or skin lesions. NEUROLOGICAL: Denies altered mental status or loss of consciousness. Denies headache. Denies weakness or paralysis or loss of use of either side. Denies problems with gait or speech. Denies sensory or motor loss. ALL OTHER SYSTEMS REVIEWED AND NEGATIVE. Physical Exam - Notes Notes: General Appearance: Well nourished, alert, cooperative, no acute distress, no obvious discomfort. Well-appearing. Vitals: reviewed, See vital signs table. Eyes: PERRL, EOMI, Conjuctiva clear Mouth: No decreasd moisture Lungs: No wheezing, No rales, No rhonci, No accessory muscle use, good air exchange bilaterally. Heart: Normal rate, Irregular rythm, No murmur, no rub Abdomen: Normal BS, soft, No rigidity, No abdominal tenderness, No guarding, no rebound, no abdominal masses, no organomegaly Extremities: strength 5/5 in all extremities, good pulses in all extremities, no swelling or tenderness in the extremities, no edema. Skin: warm, dry, appropriate color, no rash Neuro: speech clear, oriented x 3, normal affect, responds appropriately to questions. Course - Laboratory Result Diagrams: 03/21/19 22:30 03/21/19 22:30 Laboratory results interpreted by me: 03/21/19 03/21/19 22:30 22:30 Creatinine 1.30 H TSH 5.11 H Free T4 0.71 L - EKG Interpretation by Me Additional EKG results interpreted by me: 03/21/19 22:00 EKG shows atrial fibrillation with a rate of [address] segment elevation or depression. QRS duration and QT intervals are within normal range. Old EKG for comparison is from March 11, 2018. Discharge - Discharge Clinical Impression: Abnormal thyroid function test Atrial fibrillation Qualifiers: Atrial fibrillation type: chronic Qualified Code(s): I48.2 - Chronic atrial fi brillation Condition: Good Disposition: HOME, SELF-CARE Additional Instructions: Patient is feeling much improved. Looks well. Heart rate is between 70 and 90. He has no chest pain. No shortness of breath. Laboratory evaluation is unremarkable except for mild creatinine elevation as well as his TSH being will be elevated with a low T4. Patient has not been taking his medicines as prescribed. Informed him that he mostly his medicines keep his rate under control. It looks like he saw Dr. Jefferson when he was in the hospital. Patient said he did follow-up with a auditing clerk but has not seen him since his initial follow-up after being discharged. I will refer him back to Dr. Jefferson for continued management of his atrial fibrillation. I strongly encouraged him return to ER if he has a chest pain, difficulty breathing, or feeling that his heart rate is increasing. His chads2 vasc score is 0 and therefore does not require any anticoagulation at this time. Dictation of this chart was performed using voice recognition software; therefore, there may be some unintended grammatical errors. Prescriptions: Diltiazem HCl [Cardizem Cd 120 mg Capsule] 1 cap.sr PO DAILY #30 cap.sr Levothyroxine Sodium 75 mcg PO DAILY #30 tablet Referrals: TAMI JEFFERSON MD [ACTIVE STAFF] - Follow up in 3-5 days
[2019-03-21] MEDS ORDERED: DILTIAZEM HCL 120 MG CAP.SR.24H PO ONE (22:05)
[2019-03-21] MEDS ORDERED: DILTIAZEM HCL INJ 25 MG/5 ML VIAL IV ONE (22:05)
--- NOTE | 2019-03-21 22:08 | ER Document Report ---
ED General - General Chief Complaint: Irregular Pulse Stated Complaint: IRREGULAR HEART BEAT Time Seen by Provider: 03/21/19 22:00 Primary Care Provider: PRICILLA JAIN PA-C [Primary Care Provider] - Follow up as needed TRAVEL OUTSIDE OF THE [place] IN LAST 30 DAYS: No - Related Data Allergies/Adverse Reactions: No Known Allergies Allergy (Unverified 03/04/18 21:24) Past Medical History - Social History Family History: None, Hypertension Renal/ Medical History: Denies: Hx Peritoneal Dialysis Psychiatric Medical History: Denies: Hx Depression - Immunizations Immunizations up to date: Yes Hx Diphtheria, Pertussis, Tetanus Vaccination: Yes Discharge - Discharge Referrals: PRICILLA JAIN PA-C [Primary Care Provider] - Follow up as needed
[2019-03-21 22:47] LABS: ABSOLUTE BASOPHILS # (AUTO) 0.1 10^3/uL (0.0-0.2); ABSOLUTE EOSINOPHILS # (AUTO) 0.3 10^3/uL (0.0-0.6); ABSOLUTE MONOCYTES (AUTO) 0.8 10^3/uL (0.1-1.4); ABSOLUTE NEUT (AUTO) 3.8 10^3/uL (1.7-8.2); EOSINOPHILS % (AUTO) 3.2 % (0-6); HEMATOCRIT 42.2 % (37.9-51.0); LYMPHOCYTES % (AUTO) 38.2 % (13-45); MEAN CORPUSCULAR HEMOGLOBIN 27.4 pg (27.0-33.4); MEAN CORPUSCULAR HGB CONC 33.1 g/dL (32.0-36.0); MEAN CORPUSCULAR VOLUME 83 fl (80-97); MONOCYTES % (AUTO) 9.9 % (3-13); PLATELET COUNT 389 10^3/uL (150-450); SEGMENTED NEUTROPHILS % (AUTO) 47.7 % (42-78); TOTAL CELLS COUNTED % (AUTO) 100 %; WHITE BLOOD COUNT 7.9 10^3/uL (4.0-10.5)
[2019-03-21 23:07] LABS: ANION GAP 12 (5-19); BLOOD UREA NITROGEN 18 mg/dL (7-20); CARBON DIOXIDE 27 mmol/L (22-30); CHLORIDE 105 mmol/L (98-107); GLUCOSE 98 mg/dL (75-110); POTASSIUM 4.2 mmol/L (3.6-5.0); SODIUM 143.6 mmol/L (137-145)
[2019-03-21 23:24] LABS: FREE T4 (FREE THYROXINE) 0.71 ng/dL (0.78-2.19)
[2019-03-21 23:38] LABS: THYROID STIMULATING HORMONE 5.11 uIU/mL (0.47-4.68)
--- NOTE | 2019-03-21 23:42 | EKG REPORT ---
SEVERITY:- ABNORMAL ECG - ATRIAL FIBRILLATION, V-RATE 65-121 : Confirmed by: Carla Adams MD 21-Mar-2019 23:41:55
--- NOTE | 2019-03-21 23:42 | EKG REPORT ---
SEVERITY:- ABNORMAL ECG - ATRIAL FIBRILLATION, V-RATE 71-181 PAIRED VENTRICULAR PREMATURE COMPLEXES NONSPECIFIC T ABNORMALITIES, INFERIOR LEADS : Confirmed by: Carla Adams MD 21-Mar-2019 23:42:04
[2019-03-22 00:15] VITALS: BP 124/67
== END 2019-03-22 00:58 | disposition home or self-care (01) ==
LOC: ER 21:24
DX: I48.2 Chronic atrial fibrillation (principal); T46.1X6A Underdosing of calcium-channel blockers, initial encounter; Z91.128 Patient's intentional underdosing of medication regimen for other reason; Z91.14 Patient's other noncompliance with medication regimen; R94.6 Abnormal results of thyroid function studies; T38.1X6A Underdosing of thyroid hormones and substitutes, initial encounter
CPT/HCPCS: 93005; 99285; 96374; 36415; 84439; 83735; 84443; 85025; 80048; 84484; 93010; J3490

== ENCOUNTER → 2019-06-03 | Outpatient (CLI) | payer SELFPAY ==
--- NOTE | 2019-06-03 14:12 | RADIOLOGY REPORT (SQ) ---
EXAM DESCRIPTION: ANKLE LEFT COMPLETE COMPLETED DATE/TIME: 06/03/2019 2:02 pm REASON FOR STUDY: ANKYLOSIS, LT ANKLE M24.672 ANKYLOSIS, LEFT ANKLE COMPARISON: None. NUMBER OF VIEWS: Three views. TECHNIQUE: AP, lateral, and oblique without weight bearing radiographic images acquired of the left ankle. LIMITATIONS: None. FINDINGS: MINERALIZATION: Normal. BONES: No acute fracture or dislocation. No worrisome bone lesions. Normal alignment. No significant arthritic changes. JOINTS AND SOFT TISSUES: No swelling. No calcifications. No foreign bodies. OTHER: No other significant finding. IMPRESSION: NEGATIVE STUDY OF THE LEFT ANKLE. NO ACUTE POST-TRAUMATIC CHANGES. NO EXPLANATION FOR PA IN. TECHNICAL DOCUMENTATION: JOB ID: [id number] [employer]- All Rights Reserved Reading location - IP/workstation name: [email or web address]
== END ==
LOC: OD 13:46
PROVIDERS: ATTEND Internal Medicine
DX: M24.672 Ankylosis, left ankle (principal)

== ENCOUNTER 2019-08-04 23:06 | Emergency (ER) | payer MEDICAID ==
[2019-08-04 23:18] VITALS: BP 135/84
--- NOTE | 2019-08-05 09:05 | EKG REPORT ---
SEVERITY:- BORDERLINE ECG - SINUS RHYTHM LVH BY VOLTAGE ST ELEV, PROBABLE NORMAL EARLY REPOL PATTERN : Confirmed by: Val Justin 05-Aug-2019 09:05:21
== END 2019-08-05 03:25 | disposition left against medical advice (07) ==
LOC: ER 23:06
DX: Z53.21 Procedure and treatment not carried out due to patient leaving prior to being seen by health care provider (principal); R42 Dizziness and giddiness

== ENCOUNTER 2019-08-22 19:48 | Emergency (ER) | payer MEDICAID ==
--- NOTE | 2019-08-22 20:19 | ER Document Report ---
ED Medical Screen (RME) - General Chief Complaint: Irregular Pulse Stated Complaint: BLOOD PRESSURE ISSUES Time Seen by Provider: 08/22/19 20:13 Primary Care Provider: GISSELLE FELIZ MD [Primary Care Provider] - Follow up as needed Information source: Patient Notes: Patient presents reporting that he was at home and had rapid heart rate and a fluttering in his chest. Patient presently denies any chest pain nausea vomiting or shortness of breath. Patient does have a history of hypertension, sleep apnea, hypothyroidism as well as A. fib. Patient does not presently take any anticoagulants. I have greeted and performed a rapid initial assessment of this patient. A comprehensive ED assessment and evaluation of the patient, analysis of test results and completion of the medical decision making process will be conducted by additional ED providers. TRAVEL OUTSIDE OF THE [place] IN LAST 30 DAYS: No - Related Data Allergies/Adverse Reactions: No Known Allergies Allergy (Unverified 03/04/18 21:24) Past Medical History Renal/ Medical History: Denies: Hx Peritoneal Dialysis Psychiatric Medical History: Denies: Hx Depression - Immunizations Immunizations up to date: Yes Hx Diphtheria, Pertussis, Tetanus Vaccination: Yes Physical Exam - Vital signs Vitals: Temp Resp BP 98 F 20 157/79 H 08/22/19 20:02 08/22/19 20:02 08/22/19 20:02 - Cardiovascular Rhythm: Regular. No: Tachycardia Heart sounds: S1 appreciated, S2 appreciated Course - Vital Signs Vital signs: Temp Pulse Resp BP Pulse Ox 98 F 20 157/79 H 08/22/19 20:02 08/22/19 20:02 08/22/19 20:02 Doctor's Discharge - Discharge Referrals: GISSELLE FELIZ MD [Primary Care Provider] - Follow up as needed
--- NOTE | 2019-08-22 20:43 | ER Document Report ---
ED Cardiac - General Chief Complaint: Irregular Pulse Stated Complaint: BLOOD PRESSURE ISSUES Time Seen by Provider: 08/22/19 20:13 Primary Care Provider: TAMI JEFFERSON MD [ACTIVE STAFF] - Follow up tomorrow Notes: Patient is a 23-year-old male that comes to the emergency department for chief complaint of an episode prior to arrival for for about 3 minutes he was feeling palpitations and fluttering in his chest. He denies chest pain, dizziness, shortness of breath, nausea, or vomiting. He denies any current symptoms or symptoms otherwise. He does have a history of atrial fibrillation on Cartia XT and hypothyroidism on Synthroid. Remaining medical history includes ERIC. He follows with extractor tender raw stock Dr. Jefferson. He denies smoking, alcohol, recreational drugs. Family at bedside. TRAVEL OUTSIDE OF THE [place] IN LAST 30 DAYS: No - Related Data Allergies/Adverse Reactions: No Known Allergies Allergy (Unverified 03/04/18 21:24) Past Medical History - General Information source: Patient - Social History Smoking Status: Never Smoker Frequency of alcohol use: None Drug Abuse: None Lives with: Family Family History: None, Hypertension Patient has suicidal ideation: No Patient has homicidal ideation: No - Past Medical History Cardiac Medical History: Reports: Hx Atrial Fibrillation Endocrine Medical History: Reports: Hx Hypothyroidism Renal/ Medical History: Denies: Hx Peritoneal Dialysis Psychiatric Medical History: Denies: Hx Depression - Immunizations Immunizations up to date: Yes Hx Diphtheria, Pertussis, Tetanus Vaccination: Yes Review of Systems - Review of Systems Constitutional: No symptoms reported EENT: No symptoms reported Cardiovascular: See HPI Respiratory: No symptoms reported Gastrointestinal: No symptoms reported Genitourinary: No symptoms reported Male Genitourinary: No symptoms reported Musculoskeletal: No symptoms reported Skin: No symptoms reported Hematologic/Lymphatic: No symptoms reported Neurological/Psychological: No symptoms reported Physical Exam - Vital signs Vitals: Temp Resp BP 98 F 20 157/79 H 08/22/19 20:02 08/22/19 20:02 08/22/19 20:02 - Notes Notes: GENERAL: Alert, interacts well. No acute distress. HEAD: Normocephalic, atraumatic. EYES: Pupils equal, round, and reactive to light. Extraocular movements intact. ENT: Oral mucosa moist, tongue midline. Oropharynx unremarkable. Airway patent. LUNGS: Clear to auscultation bilaterally, no wheezes, rales, or rhonchi. No respiratory distress. HEART: Regular rate, normal rhythm with a few extrasystoles. No murmur ABDOMEN: Soft, non-tender. Non-distended. Bowel sounds present in all 4 quadrants. GENITOURINARY: Deferred EXTREMITIES: Moves all 4 extremities spontaneously. No edema, normal radial and dorsalis pedis pulses bilaterally. No cyanosis. BACK: no cervical, thoracic, lumbar midline tenderness. No saddle anesthesia, normal distal neurovascular exam. Moves all extremities in full range of motion. NEUROLOGICAL: Alert and oriented x3. Normal speech. Cranial nerves II through XII grossly intact. PSYCH: Normal affect, normal mood. SKIN: Warm, dry, normal turgor. No rashes or lesions noted. Course - Re-evaluation Re-evalutation: Patient in sinus rhythm on my evaluation with slight sinus arrhythmia, no A. fib, blood pressure unremarkable, rate unremarkable, no fever, patient asymptomatic on my exam. Patient did not have chest pain, dizziness, shortness of breath, or syncopal episode. Chest x-ray unremarkable, EKG without significant change from prior. CBC, chemistry, magnesium, thyroid studies, troponin all unremarkable. Patient was monitored without change in his symptoms. I discussed with patient. He states he just wanted to be checked out, he feels fine now, he will follow-up with close with his extractor tender raw stock and he will return if he worsens in any way. Based on his palpitation descriptions I do not have high suspicion of concerning arrhythmia. Stable at time of discharge. - Vital Signs Vital signs: Temp Pulse Resp BP Pulse Ox 98 F 61 16 137/94 H 100 08/22/19 20:02 08/22/19 20:19 08/22/19 22:38 08/22/19 22:38 08/22/19 22:38 - Laboratory Result Diagrams: 08/22/19 20:35 08/22/19 20:35 - EKG Interpretation by Me Additional EKG results interpreted by me: EKG shows sinus arrhythmia, there is some ST elevation anteriorly but this appears to be early re-pole pattern, no T wave inversions or ischemic ST segments noted in consecutive leads. Normal axis, QTC of 415. No significant change when compared to prior. Discharge - Discharge Clinical Impression: Palpitations Condition: Stable Disposition: HOME, SELF-CARE Additional Instructions: Your work-up, evaluation, and monitoring do not show any concerning findings at this time. Follow-up closely with your extractor tender raw stock for additional monitoring and management. Return if you worsen including chest pain, passing out, or any other concerning or worsening symptoms. Referrals: TAMI JEFFERSON MD [ACTIVE STAFF] - Follow up tomorrow
[2019-08-22 20:48] LABS: ABSOLUTE BASOPHILS # (AUTO) 0.1 10^3/uL (0.0-0.2); ABSOLUTE EOSINOPHILS # (AUTO) 0.1 10^3/uL (0.0-0.6); ABSOLUTE LYMPHOCYTES (AUTO) 2.2 10^3/uL (0.5-4.7); ABSOLUTE MONOCYTES (AUTO) 0.4 10^3/uL (0.1-1.4); ABSOLUTE NEUT (AUTO) 2.4 10^3/uL (1.7-8.2); BASOPHILS % (AUTO) 1.4 % (0-2); EOSINOPHILS % (AUTO) 2.1 % (0-6); HEMATOCRIT 40.6 % (37.9-51.0); HEMOGLOBIN 13.5 g/dL (13.5-17.0); LYMPHOCYTES % (AUTO) 41.7 % (13-45); MEAN CORPUSCULAR HEMOGLOBIN 27.3 pg (27.0-33.4); MEAN CORPUSCULAR HGB CONC 33.2 g/dL (32.0-36.0); MEAN CORPUSCULAR VOLUME 82 fl (80-97); MONOCYTES % (AUTO) 8.1 % (3-13); PLATELET COUNT 330 10^3/uL (150-450); RED BLOOD COUNT 4.94 10^6/uL (4.35-5.55); RED CELL DISTRIBUTION WIDTH 12.3 % (11.5-14.0); SEGMENTED NEUTROPHILS % (AUTO) 46.7 % (42-78); TOTAL CELLS COUNTED % (AUTO) 100 %; WHITE BLOOD COUNT 5.2 10^3/uL (4.0-10.5)
--- NOTE | 2019-08-22 20:59 | EKG REPORT ---
SEVERITY:- ABNORMAL ECG - SINUS ARRHYTHMIA, RATE 52-[address] ELEV, PROBABLE NORMAL EARLY REPOL PATTERN EARLY PRECORDIAL TRANSITION , NEED TO R/O OLD TRUE POSTERIOR MA : Confirmed by: Geovani Lam MD 22-Aug-2019 20:58:41
[2019-08-22 21:05] LABS: ALBUMIN 4.7 g/dL (3.5-5.0); ALKALINE PHOSPHATASE 64 U/L (38-126); ANION GAP 10 (5-19); ASPARTATE AMINO TRANSFERASE 41 U/L (17-59); BILIRUBIN,DIRECT 0.1 mg/dL (0.0-0.4); BILIRUBIN,TOTAL 0.2 mg/dL (0.2-1.3); BLOOD UREA NITROGEN 15 mg/dL (7-20); CALCIUM 9.5 mg/dL (8.4-10.2); CARBON DIOXIDE 28 mmol/L (22-30); CHLORIDE 103 mmol/L (98-107); GLUCOSE 98 mg/dL (75-110); POTASSIUM 4.3 mmol/L (3.6-5.0); TOTAL PROTEIN 8.2 g/dL (6.3-8.2)
--- NOTE | 2019-08-22 21:16 | RADIOLOGY REPORT (SQ) ---
EXAM DESCRIPTION: XR CHEST 2 VIEWS COMPLETED DATE/TME: 08/22/2019 20:16 CLINICAL HISTORY: 23 years, Male, irreg HR COMPARISON: Prior study from 03/10/2018 NUMBER OF VIEWS: Two TECHNIQUE: Frontal and lateral radiographs of the chest were obtained LIMITATIONS: None. FINDINGS: Cardiac and mediastinal contours are normal in appearance. Lungs are clear. No pleural effusion or pneumothorax. IMPRESSION: No acute disease. copyright 2010 [employer]- All Rights Reserved
[2019-08-22 21:21] LABS: FREE T3 4.03 pg/mL (2.77-5.27); FREE T4 (FREE THYROXINE) 0.81 ng/dL (0.78-2.19)
[2019-08-22 21:35] LABS: THYROID STIMULATING HORMONE 1.43 uIU/mL (0.47-4.68)
[2019-08-22 22:41] VITALS: BP 137/94
== END 2019-08-22 22:45 | disposition home or self-care (01) ==
LOC: ER 19:48
DX: R00.2 Palpitations (principal); I48.91 Unspecified atrial fibrillation; E03.9 Hypothyroidism, unspecified; Z79.899 Other long term (current) drug therapy
CPT/HCPCS: 36415; 71046; 80053; 83735; 84439; 84443; 84481; 84484; 85025; 93005; 93010; 99285

== ENCOUNTER → 2020-07-28 | Outpatient (CLI) | payer MEDICAID ==
--- NOTE | 2020-07-29 18:28 | RADIOLOGY REPORT (SQ) ---
EXAM DESCRIPTION: U/S THYROID/SFT TISS HD NECK IMAGES COMPLETED DATE/TIME: 07/28/2020 3:52 pm REASON FOR STUDY: (E07.9)DISORDER OF THYROID, UNSPECIFIED E07.9 DISORDER OF THYROID, UNSPECIFIED COMPARISON: None. TECHNIQUE: Dynamic and static ornelas-scale images acquired of the thyroid gland. Selected additional c olor/power Doppler images recorded. All images stored to PACS. LIMITATIONS: None. FINDINGS: RIGHT LOBE: Normal size. Homogeneous echotexture. No cystic or solid masses. LEFT LOBE: Normal size. Homogeneous echotexture. No cystic or solid masses. ISTHMUS: Normal size. Homogeneous echotexture. No cystic or solid masses. OTHER: No other significant finding. IMPRESSION: NORMAL THYROID ULTRASOUND. TECHNICAL DOCUMENTATION: JOB ID: [id number] 2010 [employer]- All Rights Reserved Reading location - IP/workstation name: [email or web address]
== END ==
LOC: RAD 16:33
PROVIDERS: ATTEND Internal Medicine
DX: E07.9 Disorder of thyroid, unspecified (principal)
CPT/HCPCS: 76536